=== PATIENT | male | born 1955 | race Caucasian/White ===

== ENCOUNTER 2016-12-07 18:37 | Emergency (ER) | payer OTHER ==
[2016-12-07 19:06] VITALS: RESP 18; TEMP 98.1
[2016-12-07] MEDS ORDERED: TDAP ADULT 0.5 ML INJ (BOOSTRIX) IM ONE (19:23)
--- NOTE | 2016-12-07 19:47 | EDPHY ---
H & P Stated Complaint: lac to l hand Time Seen by Provider: 12/07/16 19:44 HPI/ROS: HPI: This is a 61-year-old male who presents with Chief Complaint: Left hand laceration Location: Left hand Quality: Laceration Duration: 30 minutes prior to arrival Signs and Symptoms: + mild bleeding, no radiation, no numbness, no weakness, no tingling, no incontinence, no decreased range of motion Timing: Acute Severity: Mild Context: Right hand dominant. Patient was cutting plastic with a knife; holding in his right hand, when he slipped and accidentally cut his left hand between his thumb and pointer finger. Immediately started to bleed and he applied direct pressure. does Not take any blood thinners. Modifying Factors: Direct pressure transient relief. Comment: ROS: Constitutional: No fever, no chills, no weight loss Eyes: No blurred vision Respiratory: No shortness of breath, no cough Cardiovascular: No chest pain Gastrointestinal: No nausea, no vomiting no diarrhea Genitourinary: No dysuria Extremities: No myalgias Neurologic: No weakness, no numbness Skin: No rashes Hematologic: No bruising, no bleeding MEDICAL/SURGICAL/SOCIAL HISTORY: Source: Patient, Family Exam Limitations: No limitations - Personal History Current Tetanus/Diphtheria Vaccine: No Current Tetanus Diphtheria and Acellular Pertussis (TDAP): No - Medical/Surgical History Hx Asthma: No Hx Chronic Respiratory Disease: No Hx Diabetes: No Hx Cardiac Disease: No Hx Renal Disease: Yes Hx Cirrhosis: No Hx Alcoholism: No Hx HIV/AIDS: No Hx Splenectomy or Spleen Trauma: No Other PMH: nephrectomy (donation). gallbladder - Social History Smoking Status: Never smoked - Physical Exam Exam: CONSTITUTIONAL: Pleasant adult male, awake and alert, no obvious distress HEENT: Atraumatic and normocephalic, PERRL, EOMI. Tympanic membranes clear. . Oropharynx clear, no exudate and moist pink mucosa. Airway patent. No lymphadenopathy. No meningismus. Cardiovascular: Normal S1/S2, regular rate, regular rhythm, without murmur rub or gallop. PULMONARY/CHEST: Symmetrical and nontender. Clear to auscultation bilaterally Good air movement. No accessory muscle usage. ABDOMEN: Soft, nondistended, nontender, no rebound, no guarding, no peritoneal signs, no masses or organomegaly. No CVAT. EXTREMITIES: 2/2 pulses, no deformities, no clubbing, no cyanosis or edema. Left hand between the thumb and pointer finger in the webspace; 0.5 cm linear superficial laceration. No scaphoid tenderness. Light touch sensation intact. Fingers have full flexion and extension. NEUROLOGICAL: no focal neuro deficits. GCS 15. SKIN: Warm and dry, no erythema. no rash. Good capillary refill. Constitutional: Initial Vital Signs Temperature (C) 36.7 C 12/07/16 19:02 Heart Rate 78 12/07/16 19:02 Respiratory Rate 18 12/07/16 19:02 Blood Pressure 153/92 H 12/07/16 19:02 O2 Sat (%) 93 12/07/16 19:02 O2 Delivery Mode Room Air Allergies/Adverse Reactions: No Known Allergies Allergy (Unverified 08/29/09 21:01) Home Medications: Medication Instructions Recorded LORAZEPAM 1 mg PO DAILY 03/30/11 Cozaar 50 mg (*) 12/07/16 Enbrel 12/07/16 Gemfibrozil 12/07/16 Medical Decision Making Procedures: Procedure: Laceration repair. Verbal consent was obtained from the patient. The simple, linear 1/2 inch laceration on the left hand was anesthetized in the usual fashion using 4 ml 1% lidocaine. The wound was irrigated, draped and explored to its base with a gloved finger. There were no deep structures involved. No tendon injury was identified. The wound was repaired with #2, 5-0 Prolene in simple interrupted pattern. Good hemostasis was achieved. The patient tolerated procedure well. The procedure was performed by myself. ED Course/Re-evaluation: Wound care, laceration repair with 2 sutures Xeroform, 4 x 4 gauze, Kerlix, placed No signs of neurovascular compromise/tenting of skin/compartment syndrome/ extremities and joints examined above and below area of concern and are neurovascularly intact. Differential Diagnosis: Differential diagnosis includes but is not limited to laceration, contusion, nerve injury, tendon injury. - Data Points Medications Given: Discontinued Medications Diphtheria/Tetanus/Acell Pertussis (Boostrix) 0.5 ml IM .ONCE ONE Stop: 12/07/16 19:24 Last Admin: 12/07/16 19:31 Dose: 0.5 ml Departure - Departure Disposition: Home, Routine, Self-Care Clinical Impression: Laceration of hand Qualifiers: Encounter type: initial encounter Foreign body presence: without foreign body Laterality: left Qualified Code(s): S61.412A - Laceration without foreign body of left hand, initial encounter Condition: Good Instructions: Laceration (ED), Care For Your Stitches (ED) Additional Instructions: Keep the dressing in place for 48 hours. After 48 hours, you may remove the dressing; wash the site daily with mild soap and water; then pat dry. Sutures need to be removed in 7-10 days. You may return to the ED to have these removed. Please monitor for signs of infection; redness, warmth, purulent drainage. If any of these signs occur, you should return to the ER immediately. Referrals: BOY OWENS [Other] - As per Instructions
[2016-12-07 20:15] VITALS: BP 138/80; PULSE 74; O2SAT 91
== END 2016-12-07 20:15 | disposition home or self-care (01) ==
PROC: 0HQGXZZ Repair Left Hand Skin, External Approach (ICD-10-PCS; principal; 2016-12-07)
DX: S61.412A Laceration without foreign body of left hand, initial encounter (principal); Z23 Encounter for immunization; W26.0XXA Contact with knife, initial encounter